=== PATIENT | male | born 1950 | race Caucasian/White ===

== ENCOUNTER 2017-02-13 07:58 | Outpatient (CLI) | payer OTHER ==
[~2017-02-13 07:58] MED LIST: AMLODIPINE BESY1 CA5 PO; CLARITIN10 M2 PO; NORCO1 TA1 PO; VITAMIN C1000 MG PO
--- NOTE | 2017-02-13 08:39 | DIAGNOSTIC IMAGING REPORT ---
PROCEDURE: US ABDOMEN VASCULAR-AAA INDICATION: HX: OF SMOKING, SCREENING TECHNIQUE: Steele scale, color Doppler (and spectral Doppler if indicated) sonographic images were obtained of the abdominal aorta and proximal common iliac arteries. COMPARISON: CT abdomen pelvis 07/14/2011 FINDINGS: Aortic course and contour: Normal course. Mild, smooth wall calcification. Greatest AP diameter of the proximal aorta: 3.0 cm, mid aorta: 2.9 cm, distal aorta: 1.8 cm. Aortic flow: Normal Right common iliac artery diameter 1.0 cm. Left common iliac artery diameter 12.3 cm. Iliac arterial flow: Normal IMPRESSION: 1. Mild ectasia of the proximal abdominal aorta. 2. Mild atherosclerotic plaque.
--- NOTE | 2017-02-13 16:29 | DIAGNOSTIC IMAGING REPORT ---
PROCEDURE: MR UPPER EXTREMITY W/O CONT-LT INDICATION: LEFT VOLAR WRIST PAIN, POST INJURY 6mo AGO TECHNIQUE: Axial T1, STIR, proton density fat sat, coronal proton density, STIR, T2 gradient, and sagittal proton density and proton density fat sat sequences were obtained through the left wrist. COMPARISON: None. FINDINGS: Osseous structures and articular surfaces: The scapholunate interval is widened measuring about 6.7 mm. There is volar subluxation and dorsal tilt of the lunate. This results in proximal migration of the capitate. Nondisplaced impaction fracture involving the volar aspect of the subluxed lunate. Also small subcortical contusion seen at the proximal aspect of the scaphoid. There is already moderate joint space loss at the radial scaphoid articulation dorsally more so than volar. Intraosseous cystic changes seen within the triquetrum. There are small articular surface spurs seen on the pisiform. There is mild volar subluxation of the distal ulna with respect to the sigmoid notch. Very slight ulnar positive variance is noted. Ligaments: The scapholunate ligament is torn and there is high fluid signal within this scapholunate interval. Lunotriquetral ligament appears intact. The dorsal radioulnar ligament is torn. There is fluid in its expected location. Intermediate signal and thickening and the region of the volar extrinsic carpal ligaments. Mild edema in the region of the dorsal extrinsic ligaments. Tendons: Extensor tendons in all six groups demonstrate normal course and morphology.. The flexor tendon groups within the carpal tunnel appear normal. Soft tissues, musculature, and fluid: Median and ulnar nerves appear normal. Flexor retinacular thickness is normal. There is thinning of the proximal surface of the triangular fibrocartilage with small perforation. There is a small radial ulnar joint effusion. The visible musculature is of normal signal without secondary signs of denervation injuries. No suspicious soft tissue mass. IMPRESSION: 1. 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 2. There is osseous contusion and probable minor nondisplaced impaction fractures involving the proximal carpal row. 3. 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 4. There is slight volar ulnar subluxation resulting from the dorsal radial ulnar ligament tear. 5. There is a small perforation of the proximal triangular fibrocartilage which may be chronic given positive ulnar variance.
== END 2017-02-13 23:00 ==
LOC: US SRH 07:58
DX: S63.002A Unspecified subluxation of left wrist and hand, initial encounter (principal); M94.232 Chondromalacia, left wrist; S63.592A Other specified sprain of left wrist, initial encounter; Z87.891 Personal history of nicotine dependence; I77.811 Abdominal aortic ectasia; I70.90 Unspecified atherosclerosis